=== PATIENT | male | born 1985 | race Caucasian/White ===

== ENCOUNTER 2019-11-29 16:08 | Emergency (ER) | payer SELFPAY ==
[2019-11-29 16:11] VITALS: BP 137/75; PULSE 67; RESP 12; TEMP 36.9; O2SAT 98; BMI 20.5
--- NOTE | 2019-11-29 16:54 | ED_ITS ---
HPI - Dental/Oral <RABIA Vaughn - Last Filed: 11/29/19 20:56> General Chief complaint: Dental/Oral Stated complaint: Oral pain Time Seen by Provider: 11/29/19 16:27 Source: patient Mode of arrival: Ambulatory History of Present Illness HPI Narrative: 34yo male presents to the emergency department complaining of tooth pain to the left upper side of his face. He states this started yesterday. Patient does not have a dentist at this time. He states he took some pain medication before coming in. Patient denies any history of abscess to but does report caries and tooth fractures. Patient denies any fevers, chills, nausea, vomiting, diarrhea, abdominal pain, chest pain, or any other concerns. Related Data Previous Rx's Medication Instructions Recorded penicillin V potassium 500 mg PO QID 7 Days #28 tab 11/29/19 Allergies Allergy/AdvReac Type Severity Reaction Status Date / Time No Known Drug Allergies Allergy Verified 11/29/19 16:17 Review of Systems <RABIA Vaughn - Last Filed: 11/29/19 20:56> Review of Systems Narrative: REVIEW OF SYSTEMS: GENERAL: Denies fever or chills. HENT: Complains of tooth pain, see HPI. CARDIOVASCULAR: No chest pain or syncope. RESPIRATORY: No shortness of breath or cough. GASTROINTESTINAL: No nausea, vomiting, diarrhea, or constipation. MUSCULOSKELETAL: No pain, weakness, or deformities. INTEGUMENTARY: No rash, lesions, or pruritus. NEURO: No numbness, tingling. Patient History <RABIA Vaughn - Last Filed: 11/29/19 20:56> Medical History No significant medical problems (Acute) Social History Smoking Status: Current every day smoker Smoking Status: Current every day smoker alcohol intake frequency: holidays/special occasions only Substance Use Type: marijuana Exam <RABIA Vaughn - Last Filed: 11/29/19 20:56> Initial Vital Signs Initial Vital Signs: Vital Signs Temperature 98.4 F 11/29/19 16:11 Pulse Rate 67 11/29/19 16:11 Respiratory Rate 12 11/29/19 16:11 Blood Pressure 137/75 11/29/19 16:11 Pulse Oximetry 98 11/29/19 16:11 PHYSICAL EXAMINATION: GENERAL: Patient was drowsy during examination, he was alert and oriented x4, easy to arouse. Answers questions promptly and appropriately. Vital signs noted. HENT: Normocephalic, atraumatic. Swelling and erythematous gingiva noted to left upper tooth approximately tooth number 12-14. Multiple tooth fractures and caries noted. Some swelling noted to left cheek, no significant external erythema. EYES: Conjunctiva pink, sclera white, no periorbital swelling. CHEST: Normal to inspection and without deformities. CARDIOVASCULAR: S1 and S2 sounds normal. Regular rate and rhythm, no murmurs, clicks, or bruits. RESPIRATORY: Normal respiratory rate, trachea midline, airway patent. No stridor, nasal flaring or accessory muscle use. MUSCULOSKELETAL: Normal gait and coordination. Equal tone and mass bilaterally. EXTREMITIES: CMS intact. Moves all extremities. SKIN: Warm, dry, soft, appropriate color for ethnicity. No lesions, rashes, or wounds. NEURO: Alert and Oriented X 3. Good coordination. No ataxia, or sensory deficits, or cognitive issues. PSYCH: Appropriate affect and mood. <Tian Monte DO - Last Filed: 12/07/19 20:39> Initial Vital Signs Initial Vital Signs: Vital Signs Temperature 98.4 F 11/29/19 16:11 Pulse Rate 67 11/29/19 16:11 Respiratory Rate 12 11/29/19 16:11 Blood Pressure 137/75 11/29/19 16:11 Pulse Oximetry 98 11/29/19 16:11 Course <RABIA Vaughn - Last Filed: 11/29/19 20:56> Vital Signs Vital signs: Vital Signs - 8 hr 11/29/19 16:11 Temperature 98.4 F Pulse Rate 67 Respiratory Rate 12 Blood Pressure 137/75 Pulse Oximetry 98 <DO Lori Glynn Last Filed: 12/07/19 20:39> Vital Signs Vital signs: Vital Signs - 8 hr 11/29/19 16:11 Temperature 98.4 F Pulse Rate 67 Respiratory Rate 12 Blood Pressure 137/75 Pulse Oximetry 98 MDM - Dental/Oral <RABIA Vaughn - Last Filed: 11/29/19 20:56> Medical Records Attestation: I reviewed the patient's medical records. Lab Data Attestation: I reviewed the patient's lab results. MDM Narrative Medical decision making narrative: 34yo male with significant caries and fractures, presents emergency department complaining of swelling to his left upper jaw since yesterday. This appears to be a tooth abscess as seen with erythematous gingiva, caries, tooth tenderness, and surrounding swelling. Patient was given penicillin to help with infection. He is encouraged to follow up with a dentist within the next week for further care and evaluation. Patient agrees to plan of care verbalized understanding. Return precautions given for new or worsening symptoms. Patient denied needing any pain medication to be drowsy from the ?pain medication ? that he took previously. Discharge Plan Departure Patient Disposition: Home Clinical Impression: Dental abscess Discharge Date/Time: 11/29/19 17:08 Instructions: Tooth Abscess Activity Restrictions/Additional Instructions: Thank you for entrusting me with your care today. As discussed, you most likely have a dental abscess. I prescribed you antibiotics, please take these as directed. Please follow-up with a dentist in the next week for further evaluation and care of your abscessed tooth. Return emergency department for any new or worsening symptoms such as high fevers, uncontrollable vomiting, severe shortness of breath, chest pain, or any other concerns. Prescriptions: New penicillin V potassium 500 mg tablet 500 mg PO QID 7 Days Qty: 28 RF: 0 <Tian Monte, DO - Last Filed: 12/07/19 20:39> Sign Out Provider Sign Out Attestation: Dr Monte Co-Sign Statement: I was available for consultation during this patient's emergency department visit. This chart is signed by myself for administrative purposes only. I did not have direct co ntact with this patient during this visit. They were seen independently by the APC.
== END 2019-11-29 17:08 | disposition home or self-care (01) ==
PROVIDERS: Emergency Provider Nurse Practitioner
DX: K04.7 Periapical abscess without sinus (principal)
CPT/HCPCS: 99281